=== PATIENT | female | born 1955 | race Caucasian/White ===

== ENCOUNTER 2019-06-14 18:32 | Observation (INO) ==
[2019-06-14] MEDS ORDERED: MORPHINE SULFATE 4 MG/ML SYRG IV ONE (19:20)
[2019-06-14] MEDS ORDERED: ONDANSETRON HCL/PF 2 MG/ML VIAL IV ONE (19:20)
[2019-06-14 19:23] LABS: Urine Appearance Clear (CLEAR); Urine Color Yellow
[2019-06-14 19:24] LABS: Urine Bilirubin Negative (NEGATIVE); Urine Blood 250 /ul (NEGATIVE); Urine Ketone Large mg/dL (NEGATIVE); Urine Nitrite Negative (NEGATIVE); Urine Protein 15 mg/dL (NEGATIVE); Urine RBC 0-5 /hpf (0-5); Urine Urobilinogen Normal (NORMAL); Urine WBC 0-5 /hpf (0-5)
[2019-06-14 19:25] LABS: Urine Bacteria None Seen
--- NOTE | 2019-06-14 19:26 | ERNOTE ---
Medical Problem HPI - Narrative Date of Service: 06/14/19 - General Chief Complaint: General Assessment Time Seen by Provider: 06/14/19 18:42 - Immun/Allergies/Home Medications Immunizations: IMMUNIZATION HX Immunizations Up to Date Yes History of Influenza Vaccine No Hx Pneumococcal Vaccination No Allergies/Adverse Reactions: Allergies No Known Allergies Allergy (Verified 06/14/19 18:38) Home Medications: HOME MEDICATIONS lisinopril 10 mg tablet 10 mg PO DAILY #90 tab 12/30/18 [Last Taken Unknown] pantoprazole 40 mg tablet,delayed release 40 mg PO DAILY #90 tab 12/30/18 [Last Taken Unknown] HYDROcodone/ACETAMINOPHEN [[place] 5-325] 1 tab PO Q4H PRN #40 tab 01/21/19 [Last Taken Unknown] - History of Present History Narrative: Patient is a 63 years old female presents with complaint of epigastric pain, nausea, vomiting 4 times today. Symptoms all started last evening. Patient reports starting having mild discomfort after lunch yesterday. She reports having an emesis shortly after dinner last night. Patient reports having GERD for which she takes protonic and add a episode of pancreatitis in December of this year. Patient denies drinking alcohol and knowing to have elevated triglyceride. Patient also reports having pain in her mid back. Her father was known to have a aortic aneurysm. Patient reports not eating at all as she has no appetite. Patient rates her pain at a 10 out of 10 prior to coming and at a 8 out 10 now. Timing: constant Severity: moderate Modifying Factors - (Improves): Present: rest - laying flat Modifying Factors - (Worsens): Present: eating, other - sitting and standing up Review of Systems - Review of Systems Constitutional: Present: no symptoms reported. Absent: fever, chills EYE: Present: no symptoms reported ENT: Present: no symptoms reported Respiratory: Present: no symptoms reported Cardiology: Present: no symptoms reported Gastrointestinal/Abdominal: Present: nausea, vomiting, abdominal pain, eating less Genitourinary: Absent: frequency, pain, dysuria Musculoskeletal: Present: back pain - mid back when sitting up Skin: Present: no symptoms reported Neurological: Present: no symptoms reported Endocrine: Present: no symptoms reported Hematologic/Lymphatic: Present: no symptoms reported All Other Systems: All systems neg except as marked Medical History (Updated 01/23/19 @ 09:02 by Antwon Syed MD) GERD (gastroesophageal reflux disease) (Chronic) Hyperlipidemia (Chronic) Onset Date: Unknown GERD (gastroesophageal reflux disease) (Chronic) Onset Date: ~11/04/13 Hypertension (Chronic) Onset Date: ~11/27/15 Allergic rhinitis (Chronic) Onset Date: ~11/04/13 Low back pain Onset Date: ~11/05/13 Surgical History: Surgical History (Updated 01/13/19 @ 09:17 by Radha Austin RN) H/O colonoscopy Onset Date: ~03/31/13 H/O eye surgery Onset Date: ~1996 right eye H/O tubal ligation Onset Date: ~1976 History of appendectomy Onset Date: ~1983 History of cholecystectomy Onset Date: ~1983 History of esophagogastroduodenoscopy (EGD) Onset Date: ~07/17/16 History of lumpectomy Onset Date: ~1993 right breast Family History: Family History (Updated 01/13/19 @ 09:13 by Radha Austin RN) Mother Myocardial infarction Hypertension Hyperlipemia Diabetes Sister Hypertension Graves disease Grandfather Heart disease Grandfather Heart disease Father Myocardial infarction Hyperlipemia Hypertension CVA (cerebral vascular accident) AAA (abdominal aortic aneurysm) Grandmother Alzheimers disease Social History: (Last Reviewed 06/14/19 @ 18:38 by Sarina Newton RN) Social History: Marital status: household members: spouse current occupational status: retired Service: No Tobacco: Smoking Status: Never smoker Alcohol: alcohol intake: never Substance Use: substance use type: does not use Dietary Habits: caffeine: Yes Physical Exam - Physical Exam General Appearance: Present: wd/wn, alert, mild distress Head Exam: Present: normal inspection, no evidence of injury Eye Exam: Normal inspection: bilateral Ears, Nose, Throat: Present: normal ENT inspection Neck: Present: normal inspection, nontender Respiratory: Present: no respiratory distress, normal breath sounds, no accessory muscle use Cardiovascular/Chest: Present: regular rate, rhythm, no murmur, normal peripheral pulses, other - pulse equal bilaterally. Absent: friction rub, JVD Gastrointestinal/Abdominal: Present: normal bowel sounds, no organomegaly, tenderness, other - epigastric tenderness Extremity Exam: Present: normal inspection, non-tender, normal range of motion, no edema Neurological Exam: Present: alert, oriented, normal mood/affect Skin Exam: Present: normal color Lymphatic Exam: Present: no adenopathy Progress - Vital Signs Vital Signs: Vital Signs 06/14/19 18:34 Temperature 36.8 C Pulse Rate 79 Respiratory Rate 16 Blood Pressure 212/97 H O2 Sat by Pulse Oximetry 99 - Progress/Reassessment Chief Complaint: General Assessment Progress:: Improved Progress Note-Subjective: 06/14/19 20:00 - pain improved, lipase elevated, IV fluid started, CT abdomen pelvis w/iV contrast - Transfer of Care Physician Sign Out: Jada Ho Receiving Physician: Jonas Banegas Departure Clinical Impression: Pancreatitis, acute - Departure Disposition: Still a patient Condition: Stable Referrals: Antwon Syed MD [Primary Care Provider] -
[2019-06-14 19:27] LABS: Hematocrit 41.4 % (37.0-47.0); Hemoglobin 14.3 gm/dL (12.5-16.0); Mean Cell Volume 87.9 fl (78-100); Mean Corpuscular Hemoglobin 30.4 pg (27-31); Mean Corpuscular Hgb Conc 34.5 g/dl (32-36); Mean Platelet Volume 9.5 fl (8-12.5); Neutrophil # 12.1 K/mm3 (1.3-6.0); Neutrophil % 88.9 % (42-75.0); Platelet Count 247 K/mm3 (150-450); Red Blood Count 4.71 M/mm3 (4.2-5.4); White Blood Count 13.7 K/mm3 (4.0-10.5)
[2019-06-14 19:42] LABS: Troponin I Less than 0.017 ng/mL (0.00-0.10)
[2019-06-14 19:46] LABS: ALT 29 U/L (19-67); AST 25 U/L (0-48); Albumin * 3.4 gm/dl (3.4-5.0); Alkaline Phosphatase * 118 U/L (50-170); Amylase * 79 U/L (25-115); BUN/Creatinine Ratio 13.6 (9.0-21.6); Bilirubin, Total 0.7 mg/dL (0.0-1.1); Blood Urea Nitrogen 9 mg/dL (3-23); CK Total * 22 U/L (0-259); Ca. Corrected For Albumin 9.1 mg/dL (8.4-10.2); Calcium * 8.9 mg/dL (7.9-10.9); Carbon Dioxide 24.7 mmol/L (24-32.6); Chloride 95 mmol/L (97-106); Glucose * 126 mg/dL (70-110); Potassium 3.7 mmol/L (3.4-4.6); Sodium 133 mmol/L (132-142); Total Protein 7.2 gm/dL (6.2-8.2)
[2019-06-14 19:49] LABS: Lipase 1534 U/L (73-393)
[2019-06-14] MEDS ORDERED: NORMAL SALINE 1,000 ML IV ONE ×2 (19:57→19:59)
[2019-06-14] MEDS ORDERED: LABETALOL HCL 5 MG/ML VIAL IV ONE ×2 (21:28→22:13)
[2019-06-14] MEDS ORDERED: CLONIDINE HCL 0.1 MG TABLET PO ONE (22:38)
[2019-06-14] MEDS ORDERED: NICARDIPINE HCL 25 MG in NORMAL SALINE 240 ML IV PRN (23:12)
[2019-06-15] MEDS ORDERED: NORMAL SALINE 1,000 ML IV PRN (00:11)
[2019-06-15] MEDS ORDERED: ONDANSETRON HCL/PF 2 MG/ML VIAL IV PRN (00:11)
[2019-06-15] MEDS ORDERED: MORPHINE SULFATE 2 MG/ML DISP.SYRIN IV PRN (00:11)
[2019-06-15] MEDS ORDERED: LABETALOL HCL 5 MG/ML VIAL IV PRN (00:12)
[2019-06-15] MEDS ORDERED: ENALAPRILAT DIHYDRATE 1.25 MG/ML VIAL IV SCH (06:15)
--- NOTE | 2019-06-15 06:31 | HP ---
Chief Complaint - Chief Complaint Date of Service: 06/15/19 Time of Service: 06:24 Chief Complaint: Acute onset of SHELLY pain with N/V. History of Present Illness: Pt. was in her usual state of health until 2 days [employer], when she began having decreased appetite, some minor SHELLY pain and nausea, that then progressed to moderate severe SHELLY pain, with radiation to her back and significant N/V. She denies EtOH consumption, change in diet or OTC or Rx meds. Pt. has hx of pancreatitis several months ago, but has had no issues since. She takes a PPI (protonix) on a regular basis for GERD. Has had a cholecystectomy. does have a hx of elevated TG but only in the 200's. She denies F/C's, but definite malaise and some diarrhea. In the ER she had elevated Lipase and WBC's, no fever, but elevated BP's. Due to her distress, pancreatitis and elevated BP's, she was admitted for pain control, IVF's and additional testing to be sure no necrosis of the pancreas and to be sure sx improved. Medical History (Updated 06/15/19 @ 07:06 by Antwon Syed MD) GERD (gastroesophageal reflux disease) (Chronic) Hyperlipidemia (Chronic) Onset Date: Unknown GERD (gastroesophageal reflux disease) (Chronic) Onset Date: ~11/04/13 Hypertension (Chronic) Onset Date: ~11/27/15 Allergic rhinitis (Chronic) Onset Date: ~11/04/13 Pancreatitis Low back pain Onset Date: ~11/05/13 Surgical History: Surgical History (Updated 06/15/19 @ 06:31 by Antwon Syed MD) H/O colonoscopy Onset Date: ~03/31/13 H/O eye surgery Onset Date: ~1996 right eye H/O tubal ligation Onset Date: ~1976 History of appendectomy Onset Date: ~1983 History of cholecystectomy Onset Date: ~1983 History of esophagogastroduodenoscopy (EGD) Onset Date: ~07/17/16 History of lumpectomy Onset Date: ~1993 right breast Family History: Family History (Updated 01/13/19 @ 09:13 by Radha Austin RN) Mother Myocardial infarction Hypertension Hyperlipemia Diabetes Sister Hypertension Graves disease Grandfather Heart disease Grandfather Heart disease Father Myocardial infarction Hyperlipemia Hypertension CVA (cerebral vascular accident) AAA (abdominal aortic aneurysm) Grandmother Alzheimers disease Social History: (Last Reviewed 06/15/19 @ 00:47 by Radha Marroquin RN) Social History: Marital status: household members: spouse current occupational status: retired Service: No Tobacco: Smoking Status: Never smoker Alcohol: alcohol intake: never Substance Use: substance use type: does not use Dietary Habits: caffeine: Yes Review Of Systems (GEN) - Review of Systems Generalized/Overall Review: Present: Weakness. Absent: Chills, Fever EENTM: Present: No Symptoms Reported Respiratory: Present: No Symptoms Reported Cardiac: Present: No Symptoms Reported Abdominal: Present: Nausea, Vomiting, Abdominal Pain, Diarrhea. Absent: Hematemesis, Constipation, Melena, Bright blood from rectum Genitourinary: Present: No Symptoms Reported Musculoskeletal: Present: Back Pain Neurological: Present: No Symptoms Reported Skin: Present: No Symptoms Reported Endocrine: Present: No Symptoms Reported Immunizations: IMMUNIZATION HX Immunizations Up to Date Yes History of Influenza Vaccine No Hx Pneumococcal Vaccination No Allergies/Adverse Reactions: Allergies Allergy/AdvReac Type Severity Reaction Status Date / Time No Known Allergies Allergy Verified 06/14/19 18:38 Home Medications: HOME MEDICATIONS lisinopril 10 mg tablet 10 mg PO DAILY #90 tab 12/30/18 [Last Taken Unknown] pantoprazole 40 mg tablet,delayed release 40 mg PO DAILY #90 tab 12/30/18 [Last Taken Unknown] HYDROcodone/ACETAMINOPHEN [[place] 5-325] 1 tab PO Q4H PRN #40 tab 01/21/19 [Last Taken Unknown] Exam - Exam Vital Signs: Vital Signs - Last Taken Temp 37 C 06/15/19 00:34 Pulse 65 06/15/19 01:57 Resp 16 06/15/19 00:34 BP 158/80 H 06/15/19 00:34 Pulse Ox 96 06/15/19 00:34 Constitutional: Present: Alert, Oriented x3, Cooperative, Mild distress ENT Exam: Present: hearing grossly normal Eye Exam: bilateral eye: normal inspection, PERRL, EOMI Neck: Present: supple Respiratory: Present: lungs clear, normal breath sounds, no respiratory distress, no accessory muscle use Cardiovascular/Chest: Present: regular rate, rhythm, no murmur Abdomen: Present: tender - mainly SHELLY and RUQ, guarding, hypoactive. Absent: rigidity, rebound tenderness Extremity: Present: non-tender, no pedal edema Skin Exam: Present: normal color Neurologic: Present: director paid media II-XII nml as tested, normal mood/affect Appearance: Present: appropriate appearance, appropriate insight, neat, no memory impairment Eye contact: Present: cooperative, good eye contact, normal speech Thoughts: Present: normal thought pattern, no apparent hallucination Diagnostic Studies: Abnormal Lab Results 06/14/19 06/14/19 06/14/19 Range/Units 18:52 19:15 19:15 WBC 13.7 H (4.0-10.5) K/mm3 Immature Gran # (Auto) 0.06 H (0.000-0.0310) K/mm3 Neutrophils % 88.9 H (42-75.0) % Lymphocytes % 6.0 L (20-51) % Neutrophils # 12.1 H (1.3-6.0) K/mm3 Lymphocytes # 0.82 L (1.5-3.5) k/mm3 Chloride 95 L (97-106) mmol/L Anion Gap 17.0 H (6.8-13.8) mmol/L Random Glucose 126 H (70-110) mg/dL Lipase 1534 H (73-393) U/L Urine Protein 15 H (NEGATIVE) mg/dL Urine Blood 250 H (NEGATIVE) /ul Laboratory Results WBC 13.7 K/mm3 (4.0-10.5) H 06/14/19 19:15 RBC 4.71 M/mm3 (4.2-5.4) 06/14/19 19:15 Hgb 14.3 gm/dL (12.5-16.0) 06/14/19 19:15 Hct 41.4 % (37.0-47.0) 06/14/19 19:15 MCV 87.9 fl (78-100) 06/14/19 19:15 MCH 30.4 pg (27-31) 06/14/19 19:15 MCHC 34.5 g/dl (32-36) 06/14/19 19:15 RDW 12.0 % (11.5-14.0) 06/14/19 19:15 Plt Count 247 K/mm3 (150-450) 06/14/19 19:15 MPV 9.5 fl (8-12.5) 06/14/19 19:15 Immature Gran % (Auto) 0.40 % (0.001-0.429) 06/14/19 19:15 Immature Gran # (Auto) 0.06 K/mm3 (0.000-0.0310) H 06/14/19 19:15 88.9 % (42-75.0) H 06/14/19 19:15 6.0 % (20-51) L 06/14/19 19:15 4.3 % (0.0-9) 06/14/19 19:15 0.2 % (0.0-3.0) 06/14/19 19:15 0.2 % (0.0-1.0) 06/14/19 19:15 Nucleated RBC % 0.0 k/mm3 (0-1) 06/14/19 19:15 12.1 K/mm3 (1.3-6.0) H 06/14/19 19:15 0.82 k/mm3 (1.5-3.5) L 06/14/19 19:15 0.6 k/mm3 (0.0-1.0) 06/14/19 19:15 0.0 k/mm3 (0.0-0.7) 06/14/19 19:15 Absolute Basophils 0.0 k/mm3 (0.0-0.1) 06/14/19 19:15 Sodium 133 mmol/L (132-142) 06/14/19 19:15 133 mmol/L (130-142) 06/14/19 19:15 Potassium 3.7 mmol/L (3.4-4.6) 06/14/19 19:15 Chloride 95 mmol/L (97-106) L 06/14/19 19:15 Carbon Dioxide 24.7 mmol/L (24-32.6) 06/14/19 19:15 17.0 mmol/L (6.8-13.8) H 06/14/19 19:15 BUN 9 mg/dL (3-23) 06/14/19 19:15 0.66 mg/dL (0.4-1.4) 06/14/19 19:15 Est GFR (Non-Af Amer) 96 mL/min (60-130) D 06/14/19 19:15 13.6 (9.0-21.6) 06/14/19 19:15 126 mg/dL (70-110) H 06/14/19 19:15 Calcium 8.9 mg/dL (7.9-10.9) 06/14/19 19:15 Calcium Adj for Albumin 9.1 mg/dL (8.4-10.2) 06/14/19 19:15 0.7 mg/dL (0.0-1.1) 06/14/19 19:15 AST 25 U/L (0-48) 06/14/19 19:15 ALT 29 U/L (19-67) 06/14/19 19:15 118 U/L (50-170) 06/14/19 19:15 22 U/L (0-259) 06/14/19 19:15 CK-MB (CK-2) Less than 0.5 ng/mL (0.0-9.0) 06/14/19 19:15 CK-MB (CK-2) Rel Index 2.3 (0.0-3.6) 06/14/19 19:15 Less than 0.017 ng/mL (0.00-0.10) 06/14/19 19:15 7.2 gm/dL (6.2-8.2) 06/14/19 19:15 3.4 gm/dl (3.4-5.0) 06/14/19 19:15 Amylase 79 U/L (25-115) 06/14/19 19:15 1534 U/L (73-393) H 06/14/19 19:15 Yellow 06/14/19 18:52 Clear (CLEAR) 06/14/19 18:52 6.0 pH (5.0-7.0) 06/14/19 18:52 Ur Specific [place] 1.030 SP.GR. (1.005-1.010) 06/14/19 18:52 15 mg/dL (NEGATIVE) H 06/14/19 18:52 Negative mg/dL (NEGATIVE) 06/14/19 18:52 Large mg/dL (NEGATIVE) 06/14/19 18:52 250 /ul (NEGATIVE) H 06/14/19 18:52 Negative (NEGATIVE) 06/14/19 18:52 Negative mg/dl (NEGATIVE) 06/14/19 18:52 Prot Sulfosalicylic Acd 1+ mg/dL (0) 06/14/19 18:52 Normal EU/dl (NORMAL) 06/14/19 18:52 Ur Leukocyte Esterase Negative /ul (NEGATIVE) 06/14/19 18:52 0-5 /hpf (0-5) 06/14/19 18:52 0-5 /hpf (0-5) 06/14/19 18:52 Ur Epithelial Cells 0-5 /hpf (0-5) 06/14/19 18:52 None seen (NONE) 06/14/19 18:52 No culture indicated 06/14/19 18:52 Assessment/Plan - Assessment/Plan (1) Leukocytosis Assessment: most likely a stress reaction, but can be concerning for serious pancreatitis when elevated. Will repeat labs this am. Problem: Acute (2) Pancreatitis, acute Assessment: could be infection due to elevated CBC. CT results pending so uncertain of necrosis or not, but doubtful since her sx are better than they were last PM. will continue fluids, recheck CBC and lipase. BS are very hypoactive, so d/w slow taking of clear liquids. Hopefully can discharge home later today. I suspect the cause of all this is her protonix, so will stop this and have her go back to ranitidine, which she has at home. Problem: Acute Qualifiers: Pancreatitis type: drug induced Acute pancreatitis complication: no infection or necrosis Qualified Code(s): K85.30 - Drug induced acute pancreatitis without necrosis or infection (3) GERD (gastroesophageal reflux disease) Assessment: stop PPI due to pancreatitis SE. use ranitidine. Problem: Chronic Qualifiers: Esophagitis presence: without esophagitis Qualified Code(s): K21.9 - Gastro-esophageal reflux disease without esophagitis (4) Hypertension Assessment: BP's elevated. will resume her lisinopril this am and follow BP's She has no concerning sx assoc. with BP elevation. If elevation persists, consider staring IV enalapril. Problem: Chronic Qualifiers: (5) Discharge planning issues Assessment: anticipate discharge later today unless sx or labs show worsening of her condition. Problem: Acute
[2019-06-15 06:32] LABS: Hematocrit 36.6 % (37.0-47.0); Hemoglobin 12.5 gm/dL (12.5-16.0); Mean Cell Volume 89.9 fl (78-100); Mean Corpuscular Hemoglobin 30.7 pg (27-31); Mean Corpuscular Hgb Conc 34.2 g/dl (32-36); Mean Platelet Volume 9.5 fl (8-12.5); Neutrophil # 8.2 K/mm3 (1.3-6.0); Neutrophil % 79.5 % (42-75.0); Platelet Count 202 K/mm3 (150-450); Red Blood Count 4.07 M/mm3 (4.2-5.4); Red Cell Distribution Width 12.7 % (11.5-14.0); White Blood Count 10.3 K/mm3 (4.0-10.5)
[2019-06-15] MEDS ORDERED: LISINOPRIL 10 MG TABLET PO SCH ×2 (09:00→20:00)
[2019-06-15] MEDS: NORMAL SALINE 1,000 ML IV PRN ×2 (09:18→14:13)
--- NOTE | 2019-06-15 18:00 | DS ---
(1) Leukocytosis Problem: Resolved (2) Pancreatitis, acute Problem: Acute Qualifiers: Pancreatitis type: drug induced Acute pancreatitis complication: no infection or necrosis Qualified Code(s): K85.30 - Drug induced acute pancreatitis without necrosis or infection (3) GERD (gastroesophageal reflux disease) Problem: Chronic Qualifiers: Esophagitis presence: without esophagitis Qualified Code(s): K21.9 - Gastro-esophageal reflux disease without esophagitis (4) Hypertension Problem: Chronic Qualifiers: (5) Discharge planning issues Problem: Acute Date of Discharge:: 06/15/19 Description of Stay: Patient admitted for acute pancreatitis thought to most likely be due to her PPI - protonix. She was hydrated with IVF which normalized her lipase. She was tolerating clear liquids at time of discharge without any nausea, vomiting or abdominal pain. Her elevated BP was controlled at time of discharge on her typical lisinopril dose. The leukocytosis had resolved and could have been a stress reaction, but also could have been due to the pancreatitis. Her GERD sx can be treated outpt. with Pepcid AC and prn tums. Procedures Performed: none Results and Findings: Lab Pending Results 06/14/19 18:52: Urine Color Yellow, Urine Appearance Clear, Urine pH 6.0, Ur Specific [place] 1.030, Urine Protein 15 H, Urine Glucose (UA) Negative, Urine Ketones Large, Urine Blood 250 H, Urine Nitrate Negative, Urine Bilirubin Negative, Prot Sulfosalicylic Acd 1+, Urine Urobilinogen Normal, Ur Leukocyte Esterase Negative, Urine RBC 0-5, Urine WBC 0-5, Ur Epithelial Cells 0-5, Urine Bacteria None seen, Urine Culture Comments No culture indicated 06/14/19 19:15: WBC 13.7 H, RBC 4.71, Hgb 14.3, Hct 41.4, MCV 87.9, MCH 30.4, MCHC 34.5, RDW 12.0, Plt Count 247, MPV 9.5, Immature Gran % (Auto) 0.40, Immature Gran # (Auto) 0.06 H, Neutrophils % 88.9 H, Lymphocytes % 6.0 L, Monocytes % 4.3, Eosinophils % 0.2, Basophils % 0.2, Nucleated RBC % 0.0, Neutrophils # 12.1 H, Lymphocytes # 0.82 L, Monocytes # 0.6, Eosinophils # 0.0, Absolute Basophils 0.0 06/14/19 19:15: Sodium 133, Plasma Sodium 133, Potassium 3.7, Chloride 95 L, Carbon Dioxide 24.7, Anion Gap 17.0 H, BUN 9, Creatinine 0.66, Est GFR (Non-Af Amer) 96 D, BUN/Creatinine Ratio 13.6, Random Glucose 126 H, Calcium 8.9, Calcium Adj for Albumin 9.1, Total Bilirubin 0.7, AST 25, ALT 29, Alkaline Phosphatase 118, Creatine Kinase 22, CK-MB (CK-2) Less than 0.5, CK-MB (CK-2) Rel Index 2.3, Troponin I Less than 0.017, Total Protein 7.2, Albumin 3.4, Amylase 79, Lipase 1534 H 06/15/19 06:20: Lipase 707 H 06/15/19 06:20: WBC 10.3 D, RBC 4.07 L, Hgb 12.5, Hct 36.6 L, MCV 89.9, MCH 30.7, MCHC 34.2, RDW 12.7, Plt Count 202, MPV 9.5, Immature Gran % (Auto) 0.30, Immature Gran # (Auto) 0.03, Neutrophils % 79.5 H, Lymphocytes % 11.4 L, Monocytes % 7.8, Eosinophils % 0.7, Basophils % 0.3, Nucleated RBC % 0.0, Neutrophils # 8.2 H, Lymphocytes # 1.17 L, Monocytes # 0.8, Eosinophils # 0.1, Absolute Basophils 0.0 06/15/19 16:07: Lipase 362 Discharge Location: Home Disposition: Home self-care Condition: Good Discharge Activity: Activity as tolerated Discharge Diet: Clear Liquids Referrals: Antwon Syed MD [Primary Care Provider] - 06/19/19 Complete Home Medications List: Complete Home Medication List: lisinopril 10 mg tablet 10 mg PO DAILY #90 tab 12/30/18 HYDROcodone/ACETAMINOPHEN [[place] 5-325] 1 tab PO Q4H PRN #40 tab 01/21/19
[2019-06-15 22:16] VITALS: BP 183/91
== END 2019-06-15 20:36 | disposition home or self-care (01) ==
LOC: MS 18:32 → ER 18:32 → MS 06-15 00:15
PROVIDERS: ADMIT Family Medicine; ATTEND Family Medicine
DX: I10 Essential (primary) hypertension; D72.829 Elevated white blood cell count, unspecified; K85.30 Drug induced acute pancreatitis without necrosis or infection; K21.9 Gastro-esophageal reflux disease without esophagitis
CPT/HCPCS: 36415; 74177; 80053; 81001; 82150; 82550; 82553; 83690; 84484; 85025; 96361; 96365; 96375; 99285; G0378; J2405; Q9963; Q9967